=== PATIENT | male | born 1995 | race Caucasian/White ===

== ENCOUNTER 2016-08-04 14:49 | Emergency (ER) | payer OTHER ==
[2016-08-04 15:00] VITALS: BP 133/79
== END 2016-08-04 16:04 | disposition home or self-care (01) ==
LOC: ED 14:49
DX: S71.112A Laceration without foreign body, left thigh, initial encounter (principal); W45.8XXA Other foreign body or object entering through skin, initial encounter; Y93.89 Activity, other specified; Y99.8 Other external cause status; Y92.89 Other specified places as the place of occurrence of the external cause
CPT/HCPCS: J2001

== ENCOUNTER 2016-08-08 15:28 | Emergency (ER) | payer OTHER ==
[~2016-08-08] VITALS: Ht 167.6 cm; Wt 67.1 kg
[2016-08-08 15:36] VITALS: BP 120/61
== END 2016-08-08 16:16 | disposition home or self-care (01) ==
LOC: ED 15:28
DX: S71.112D Laceration without foreign body, left thigh, subsequent encounter (principal); L03.116 Cellulitis of left lower limb; X58.XXXD Exposure to other specified factors, subsequent encounter; Y92.89 Other specified places as the place of occurrence of the external cause; Y99.8 Other external cause status

== ENCOUNTER 2016-08-17 17:04 | Emergency (ER) | payer OTHER ==
[2016-08-17 17:27] VITALS: BP 131/58
== END 2016-08-17 18:32 | disposition home or self-care (01) ==
LOC: ED 17:04
DX: S71.112D Laceration without foreign body, left thigh, subsequent encounter (principal); L25.9 Unspecified contact dermatitis, unspecified cause; X58.XXXD Exposure to other specified factors, subsequent encounter; Y92.89 Other specified places as the place of occurrence of the external cause; Y99.8 Other external cause status